=== PATIENT | female | born 1990 | race Two or more races ===

== ENCOUNTER 2016-03-03 18:10 | Emergency (ER) | payer OTHER ==
[~2016-03-03] VITALS: Ht 180.3 cm; Wt 61.2 kg
[2016-03-03] MEDS ORDERED: HYDROCODONE/APAP 5/325MG 1 EACH TABLET PO ONE (18:30)
[2016-03-03] MEDS ORDERED: HYDROCODONE/APAP 5/325MG 1 EACH TABLET ONE (18:42)
[2016-03-03 21:04] VITALS: BP 133/68
== END 2016-03-03 20:50 | disposition home or self-care (01) ==
LOC: ER 18:12
DX: S63.92XA Sprain of unspecified part of left wrist and hand, initial encounter (principal); S30.0XXA Contusion of lower back and pelvis, initial encounter; S53.402A Unspecified sprain of left elbow, initial encounter; S83.92XA Sprain of unspecified site of left knee, initial encounter; Z88.0 Allergy status to penicillin; V03.99XA Pedestrian with other conveyance injured in collision with car, pick-up truck or van, unspecified whether traffic or nontraffic accident, initial encounter; Y93.89 Activity, other specified; Y92.413 State road as the place of occurrence of the external cause; Y99.8 Other external cause status
CPT/HCPCS: 73080-TC; 73130-TC; 73564-TC; 84703-TC; A4606; Z7610